=== PATIENT | male | born 1985 | race Caucasian/White ===

== ENCOUNTER 2017-09-04 05:13 | Emergency (ER) | payer MEDICAID ==
[~2017-09-04] VITALS: Ht 193 cm; Wt 99.0 kg
[~2017-09-04 05:13] MED LIST: ASPI81TA46 PO; CALC500T11 PO; CHLO25CA10 PO; ESCI20TA PO; GABA-530 PO; HYDR-3965 PO; ONDA4TAB12 PO; RANI150T44 PO
[2017-09-04 05:48] VITALS: BP 133/84
[2017-09-04] MEDS ORDERED: LORazepam 1 MG tablet PO ONE (05:55)
[2017-09-04 06:07] LABS: CLARITY,URINE Clear (Clear); COLOR,URINE Yellow (Yellow); GLUCOSE, URINE Negative (Neg); KETONES,URINE Negative (Neg); LEUKOCYTE ESTERASE ,URINE Small (Neg); NITRITES, URINE Negative (Neg); OCCULT BLOOD,URINE Negative (Neg); PH,URINE >=9.0 (4.8-8.0); PROTEIN,URINE 30 mg/dl (Neg)
[2017-09-04 06:09] LABS: BASOPHILS % (AUTO) 0.1 % (0-1); EOSINOPHILS % (AUTO) 0.4 % (0-6); HEMATOCRIT 43.3 % (42.0-52.0); HEMOGLOBIN 14.9 g/dl (14.0-17.9); LYMPHOCYTES # (AUTO) 3.9 X10'3 (1.1-4.8); LYMPHOCYTES % (AUTO) 49.3 % (21-51); MEAN CORPUSCULAR HEMOGLOBIN 31.1 PG (27.0-31.0); MEAN CORPUSCULAR HGB CONC 34.3 % (33.0-36.5); MEAN CORPUSCULAR VOLUME 90.6 FL (78-98); MEAN PLATELET VOLUME 7.7 FL (7.4-10.4); MONOCYTES # (AUTO) 0.6 X10'3 (0-0.9); MONOCYTES % (AUTO) 7.6 % (2-12); NEUTROPHILS # (AUTO) 3.4 X10'3 (1.8-7.7); NEUTROPHILS % (AUTO) 42.6 % (42-75); PLATELET COUNT 234 X10'3 (140-440); RED BLOOD COUNT 4.78 X10'6 (4.70-6.10); RED CELL DISTRIBUTION WIDTH 12.9 % (11.5-14.5)
[2017-09-04 06:11] LABS: UA COLLECTION TYPE VOIDED
[2017-09-04 06:13] LABS: INR 1.1 INR; PROTHROMBIN TIME 10.9 SECONDS (9.0-12.0)
[2017-09-04 06:18] LABS: ALANINE AMINOTRANSFERASE 37 U/L (12-78); ALBUMIN 3.6 G/DL (3.4-5.0); ALKALINE PHOSPHATASE 62 IU/L (46-116); ANION GAP 9 (8-16); ASPARTATE AMINO TRANSFERASE 40 U/L (10-37); BILIRUBIN,TOTAL 0.6 MG/DL (0.1-1.0); BLOOD UREA NITROGEN 10 MG/DL (7-18); CALCIUM 8.1 MG/DL (8.5-10.1); CHLORIDE 104 MMOL/L (99-107); CREATININE 0.91 MG/DL (0.60-1.10); GLUCOSE 105 MG/DL (70-104); POTASSIUM 3.4 MMOL/L (3.5-5.1); SODIUM 141 MMOL/L (135-145); TOTAL CARBON DIOXIDE 28.4 MMOL/L (24-32); TOTAL PROTEIN 7.1 G/DL (6.4-8.2); eGFR > 90 ML/MIN
[2017-09-04 06:23] LABS: BACTERIA,URINE NONE SEEN /HPF (Neg); MUCUS STRANDS FEW /LPF (Neg); RBC,URINE NONE SEEN /HPF (0-2); SQUAMOUS EPITHELIAL CELL,UR NONE SEEN /LPF (FEW); WBC,URINE 0-4 /HPF (0-4)
== END 2017-09-04 06:40 | disposition left against medical advice (07) ==
LOC: ER 05:13 → MERGE 05:13 → ER 06:40
DX: K92.1 Melena (principal); R10.11 Right upper quadrant pain; Z53.21 Procedure and treatment not carried out due to patient leaving prior to being seen by health care provider
CPT/HCPCS: 36415; 80053; 81001; 85025; 85610; 87088; 99281

== ENCOUNTER 2017-09-04 08:54 | Emergency (ER) | payer MEDICAID ==
[~2017-09-04] VITALS: Ht 188 cm; Wt 99.0 kg
[2017-09-04 09:05] VITALS: BP 127/93
== END 2017-09-04 12:01 | disposition home or self-care (01) ==
LOC: MERGE 08:55 → ER 08:55
DX: R10.84 Generalized abdominal pain (principal); Z88.5 Allergy status to narcotic agent
CPT/HCPCS: 99284

== ENCOUNTER 2017-10-20 08:18 | Emergency (ER) | payer MEDICAID ==
[~2017-10-20] VITALS: Ht 660.3 cm; Wt 100.0 kg
[2017-10-20 08:22] VITALS: BP 159/83
[2017-10-20] MEDS ORDERED: ondansetron/PF 4mg/2ml inj IV ONE (08:25)
[2017-10-20] MEDS ORDERED: normal saline 1000ML IV soln IVB ONE (08:25)
[2017-10-20] MEDS ORDERED: diphenhydrAMINE 50 mg/ml inj IV ONE (08:25)
[2017-10-20] MEDS ORDERED: gabapentin 400mg capsule PO ONE (08:25)
[2017-10-20] MEDS ORDERED: gabapentin 300mg capsule PO ONE (08:35)
== END 2017-10-20 09:57 | disposition home or self-care (01) ==
LOC: ER 08:19
DX: F10.10 Alcohol abuse, uncomplicated (principal); R11.2 Nausea with vomiting, unspecified; R19.7 Diarrhea, unspecified; R10.84 Generalized abdominal pain; F12.90 Cannabis use, unspecified, uncomplicated; K21.9 Gastro-esophageal reflux disease without esophagitis; I48.91 Unspecified atrial fibrillation; Z88.5 Allergy status to narcotic agent; Z79.82 Long term (current) use of aspirin; Z79.899 Other long term (current) drug therapy
CPT/HCPCS: 96361; 96374; 96375; 99284; J1200; J2405; J7030

== ENCOUNTER 2017-10-24 02:19 | Emergency (ER) | payer MEDICAID ==
[~2017-10-24] VITALS: Ht 188 cm; Wt 110.0 kg
[2017-10-24 03:03] LABS: BASOPHILS % (AUTO) 0.1 % (0-1); EOSINOPHILS % (AUTO) 0.3 % (0-6); HEMATOCRIT 53.5 % (42.0-52.0); LYMPHOCYTES % (AUTO) 36.7 % (21-51); MEAN CORPUSCULAR HEMOGLOBIN 31.3 PG (27.0-31.0); MEAN CORPUSCULAR HGB CONC 34.6 % (33.0-36.5); MEAN CORPUSCULAR VOLUME 90.4 FL (78-98); MEAN PLATELET VOLUME 7.9 FL (7.4-10.4); MONOCYTES # (AUTO) 0.7 X10'3 (0-0.9); NEUTROPHILS # (AUTO) 6.2 X10'3 (1.8-7.7); NEUTROPHILS % (AUTO) 56.9 % (42-75); PLATELET COUNT 244 X10'3 (140-440); RED BLOOD COUNT 5.91 X10'6 (4.70-6.10); RED CELL DISTRIBUTION WIDTH 13.7 % (11.5-14.5)
[2017-10-24 03:05] LABS: ALANINE AMINOTRANSFERASE 279 U/L (12-78); ALBUMIN 3.7 G/DL (3.4-5.0); ALBUMIN/GLOBULIN RATIO 0.9 (1.1-1.5); ALKALINE PHOSPHATASE 79 IU/L (46-116); ANION GAP 11 (8-16); ASPARTATE AMINO TRANSFERASE 359 U/L (10-37); BILIRUBIN,TOTAL 1.8 MG/DL (0.1-1.0); BLOOD UREA NITROGEN 15 MG/DL (7-18); BUN/CREATININE RATIO 10.8 (5.4-32.0); CALCIUM 7.9 MG/DL (8.5-10.1); CHLORIDE 92 MMOL/L (99-107); CREATININE 1.39 MG/DL (0.60-1.10); GLUCOSE 138 MG/DL (70-104); SODIUM 133 MMOL/L (135-145); TOTAL CARBON DIOXIDE 29.7 MMOL/L (24-32); TOTAL PROTEIN 7.6 G/DL (6.4-8.2); eGFR 59 ML/MIN
[2017-10-24 03:06] LABS: POTASSIUM 2.7 MMOL/L (3.5-5.1)
[2017-10-24 03:23] LABS: HEMOGLOBIN 18.5 g/dl (14.0-17.9)
[2017-10-24] MEDS ORDERED: normal saline 1000ml 1,000 ML IVB ONE ×2 (03:32)
[2017-10-24] MEDS ORDERED: ondansetron/PF 4mg/2ml inj IV ONE (03:35)
[2017-10-24] MEDS ORDERED: potass W/LIDOcaine 10mEq/100ml 100 ML IV ONE (03:35)
[2017-10-24] MEDS ORDERED: LORazepam 2 mg/ml vial IV ONE (03:40)
[2017-10-24] MEDS ORDERED: haloperidol lactate 5mg/ml inj IM ONE (03:40)
[2017-10-24 03:54] LABS: LIPASE 123 U/L (73-393)
[2017-10-24 04:10] VITALS: BP 125/84
[2017-10-24 05:28] LABS: CLARITY,URINE CLEAR (Clear); GLUCOSE, URINE NEGATIVE (Neg); KETONES,URINE NEGATIVE (Neg); LEUKOCYTE ESTERASE ,URINE TRACE (Neg); NITRITES, URINE NEGATIVE (Neg); OCCULT BLOOD,URINE NEGATIVE (Neg); PROTEIN,URINE NEGATIVE (Neg)
[2017-10-24 05:29] LABS: COLOR,URINE AMBER (Yellow); UA COLLECTION TYPE CLN CATCH MIDSTREAM
[2017-10-24 05:37] LABS: BACTERIA,URINE FEW /HPF (Neg); MUCUS STRANDS FEW /LPF (Neg); RBC,URINE 0-2 /HPF (0-2); SQUAMOUS EPITHELIAL CELL,UR FEW /LPF (FEW); WBC,URINE 0-4 /HPF (0-4)
[2017-10-24 05:39] LABS: HYALINE CASTS 0-3 /LPF (NEGATIVE)
[2017-10-24 05:42] LABS: URINE AMPHETAMINE SCREEN NEGATIVE (Neg); URINE BARBITUATE SCREEN NEGATIVE (Neg); URINE BENZODIAZEPINES SCREEN NEGATIVE (Neg); URINE CANNABINOID SCREEN POSITIVE (Neg); URINE COCAINE SCREEN NEGATIVE (Neg); URINE METHADONE SCREEN NEGATIVE (Neg); URINE OPIATE SCREEN NEGATIVE (Neg); URINE PHENCYCLIDINE SCREEN NEGATIVE (Neg)
[2017-10-24] MEDS ORDERED: PHE25R PR (05:46)
[2017-10-24] MEDS ORDERED: CIPR-259 PO (05:46)
[2017-10-24] MEDS ORDERED: METR500T PO (05:46)
== END 2017-10-24 05:56 | disposition home or self-care (01) ==
LOC: ER 02:20
DX: F12.229 Cannabis dependence with intoxication, unspecified (principal); I48.91 Unspecified atrial fibrillation; K52.9 Noninfective gastroenteritis and colitis, unspecified; K21.9 Gastro-esophageal reflux disease without esophagitis; Z88.5 Allergy status to narcotic agent; Z79.82 Long term (current) use of aspirin; Z79.899 Other long term (current) drug therapy
CPT/HCPCS: 36415; 74176; 80053; 80305; 81001; 83690; 85025; 87088; 96365; 96372; 96375; 99285; J1630; J2060; J2405; J3480; J7030

== ENCOUNTER 2017-11-13 01:24 | Emergency (ER) | payer MEDICAID ==
[~2017-11-13] VITALS: Ht 188 cm; Wt 102.3 kg
[~2017-11-13 01:24] MED LIST changes: +PHE25R PR
[2017-11-13 01:27] VITALS: BP 114/97
[2017-11-13] MEDS ORDERED: GABA-532 PO (01:41)
[2017-11-13] MEDS ORDERED: gabapentin 300mg capsule PO ONE (01:45)
== END 2017-11-13 02:01 | disposition home or self-care (01) ==
LOC: ER 01:25
DX: F10.239 Alcohol dependence with withdrawal, unspecified (principal); I48.91 Unspecified atrial fibrillation; K21.9 Gastro-esophageal reflux disease without esophagitis; F12.90 Cannabis use, unspecified, uncomplicated; R11.2 Nausea with vomiting, unspecified; Z88.5 Allergy status to narcotic agent; Z79.2 Long term (current) use of antibiotics; Z79.899 Other long term (current) drug therapy
CPT/HCPCS: 99283

== ENCOUNTER 2019-12-18 17:36 | Emergency (ER) | payer MEDICAID ==
[~2019-12-18] VITALS: Ht 188 cm; Wt 100.0 kg
[~2019-12-18 17:36] MED LIST changes: +ASPI81TA44 PO; -ASPI81TA46 PO; +GABA-532 PO; +RANI-648 PO; -RANI150T44 PO
[2019-12-18 17:40] VITALS: BP 121/92
== END 2019-12-18 17:58 ==
LOC: ER 17:37
DX: F10.129 Alcohol abuse with intoxication, unspecified (principal); I48.91 Unspecified atrial fibrillation; K21.9 Gastro-esophageal reflux disease without esophagitis; F12.90 Cannabis use, unspecified, uncomplicated; Z98.890 Other specified postprocedural states; Z88.5 Allergy status to narcotic agent; Z79.82 Long term (current) use of aspirin; Z79.899 Other long term (current) drug therapy; Y90.9 Presence of alcohol in blood, level not specified
CPT/HCPCS: 99283